=== PATIENT | female | born 1945 | race Caucasian/White ===

== ENCOUNTER → 2016-07-22 | Outpatient (CLI) | payer OTHER ==
[~2016-07-22] MED LIST: ACID REDUCER20 MG PO; ASPIRIN EC81 MG PO; HABITROL 21 MG P1 EA TD; HYDROCHLOROTHIA25 MG PO; INVANZ 1 GM VIAL1 GM IV; LANTUS100 UNIT/1 SC; LASIX20 MG PO; LIPITOR TAB 2020 MG PO; LISINOPRIL10 MG PO; LOPRESSOR 50 MG50 MG PO; NORCO 5-325 TA1 EACH PO; NORVASC10 MG PO; NOVOLOG 10100 UNITS1 INJ; PAXIL10 MG PO; PLAVIX 75 MG TA75 MG PO; TYLENOL 325MG325 MG PO; VISTARIL 25 MG25 MG PO
[2016-07-22 14:06] LABS: HEMOGLOBIN 14.4 gm/dl (12.3-15.3); RED BLOOD COUNT 4.92 M/UL (4.00-5.10); WHITE BLOOD COUNT 8.3 K/UL (4.5-11.0)
== END ==
LOC: US 13:00
PROVIDERS: Internal Medicine Nephrology
DX: N18.3 Chronic kidney disease, stage 3 (moderate) (principal); R80.9 Proteinuria, unspecified; N28.89 Other specified disorders of kidney and ureter
CPT/HCPCS: 36415; 80048; 81001; 82570; 84156; 85027; 86039; 86160; 86225; 86334

== ENCOUNTER → 2016-08-01 | Outpatient (CLI) | payer OTHER | LOC: CT 12:57 | DX: N28.89 Other specified disorders of kidney and ureter (principal) | CPT/HCPCS: J7050; Q9965 ==

== ENCOUNTER → 2016-09-19 | Outpatient (CLI) | payer OTHER | LOC: LAB 14:10 | PROVIDERS: Internal Medicine Nephrology | DX: I12.9 Hypertensive chronic kidney disease with stage 1 through stage 4 chronic kidney disease, or unspecified chronic kidney disease (principal); E11.22 Type 2 diabetes mellitus with diabetic chronic kidney disease; N18.3 Chronic kidney disease, stage 3 (moderate) | CPT/HCPCS: 36415; 80048; 81001; 82570; 83036; 84156 ==